=== PATIENT | female | born 2000 | race Caucasian/White ===

== ENCOUNTER 2025-11-09 19:50 | Emergency (ER) | payer OTHER, SELFPAY ==
[2025-11-09 19:52] VITALS: BP 145/79; PULSE 92; RESP 16; TEMP 36.8; O2SAT 100; BMI 24.7
--- NOTE | 2025-11-09 19:55 | ED.GENADULT ---
HPI - General Adult General Chief complaint: Allergic Reaction Stated complaint: having allergic reactio, throat tightness Time Seen by Provider: 11/09/25 21:04 Source: patient Mode of arrival: ambulatory Limitations: no limitations History of Present Illness ED Provider: Dr. Rose Puentes HPI narrative: Patient comes to the emergency room complaining of hives, swelling of the lips, and thrown foreign body sensation. Patient states that all of her reaction started approximately 6 hours from right now. Patient states that her symptoms slowly progress over the next couple of hours, took Benadryl at home, but her hips kept getting swollen. Patient states that to her knowledge she only is allergic to cats, but did not have contact with cats today. Patient states that about a week ago she had a similar allergic reaction but she was cleaning her room and vacuum him so she thinks that there may be an allergy at home that may be causing this. Patient states that she did not eating anything out of the ordinary, she has never had issues with food in the past. Related Data Previous Rx's ?Medication ?Instructions ?Recorded epinephrine 0.3 mg/0.3 mL 0.3 mg (0.3 mL) IM Q10M PRN 11/09/25 injection, auto-injector (EpiPen anaphylaxis #2 ea 2-Keaton) famotidine 40 mg tablet (Pepcid) 40 mg PO DAILY #3 tabs 11/09/25 prednisone 50 mg tablet 50 mg PO DAILY #3 tabs 11/09/25 Allergies Allergy/AdvReac Type Severity Reaction Status Date / Time cat dander (cats) Allergy Hives Verified 11/09/25 19:55 Review of Systems Review of Systems: Constitutional : No Weight loss, No Fever, No Chills, No Night Sweats, No Fatigue, No Malaise ENT/Mouth : No Hearing loss, No Ear Pain, No Nasal Congestion, No Sinus Pain, No Hoarseness, complaining lip swelling upper and lower, No Rhinorrhea, No Swallowing Difficulty Eyes: No Eye Pain, No Swelling, No Redness, mild throat Foreign Body sensation. No Discharge, No Vision Changes Cardiovascular : No Chest Pain, No SOB, No Dyspnea on Exertion, No Orthopnea, No Edema, No Palpitations Respiratory : No Cough, No Sputum, No Wheezing, No Smoke Exposure, No Dyspnea Gastrointestinal : No Nausea, No Vomiting, No Diarrhea, No Constipation, No abdominal Pain, No Hematochezia, No Melena Genitourinary : no irregular bleeding, No Dysuria, No Urinary Frequency, No Hematuria, No Urinary Incontinence, No Urgency, No Flank Pain, No Urinary Flow Changes, No Hesitancy Musculoskeletal : No joint pain, No Myalgias, No Joint Swelling Skin : Hives informs Neuro : No Weakness, No Numbness, No Paresthesias, No Loss of Consciousness, No Dizziness, No Headache Psych : No Anxiety/Panic, No Depression, No SI/HI/AH/VH, No Social Issues, Heme/Lymph: No Bruising, No Bleeding,No Lymphadenopathy Endocrine : No Polyuria, No Polydipsia, No Temperature Int[facility] Social History Social History Advance Directives: No Advance Directives Information Provided: No Do you have a plan to hurt others: No Plan Physical Exam ED Exam Exam: Appearance: Alert. Oriented X3. No acute distress. Eyes: Pupils equal, round and reactive to light. ENT: Pharynx normal. Neck: Normal inspection. Neck supple. No lymph nodes noted. No crepitus CVS: Normal heart rate and rhythm. Pulses normal. Normal S1 and S2 Respiratory: No respiratory distress. Breath sounds normal. No Wheezing. No rales Abdomen: Soft and nontender. No rigidity. No distention. Skin: Skin warm and dry. Normal skin color. Normal skin turgor. Extremities: No lower extremity edema. No Lacerations. No Rash Neuro: Oriented X 3. No motor deficit. No sensory deficit. Moving all extremities. No slurred speech. CN 2 through 12 grossly intact Psych: calm, cooperative, normal affect Vital Signs: Vital Signs - 24 hr 11/09/25 19:52 Temperature 98.3 F Pulse Rate 92 Respiratory Rate 16 Blood Pressure 145/79 H Pulse Oximetry 100 Oxygen Delivery Method Room Air BMI result Body Mass Index 24.7 Course Course Course Narrative: Rapid medical examination performed in triage by Kareen Arana PA-C: Patient is a 25 year old female presenting to the emergency department with upper lip swelling and throat irritation secondary to an unknown irritation. Detailed physical exam and review of systems are deferred to the cardiology clinical nurse specialist. Patient placed back in the waiting room pending room availability. Medications Administered Discontinued Medications Generic Name Dose Route Start Last Admin Trade Name Freq PRN Reason Stop Dose Admin Diphenhydramine HCl 50 mg 11/09/25 21:17 11/09/25 21:29 Diphenhydramine Hcl 50 Mg/Ml Vial IVPUSH 11/09/25 21:18 50 mg ONCE ONE Administration Famotidine 20 mg 11/09/25 20:10 11/09/25 20:17 Famotidine/Pf 20 Mg/2 Ml Vial IVPUSH 11/09/25 20:11 20 mg ONCE ONE Administration Sodium Chloride 1,000 mls @ 999 mls/hr 11/09/25 20:15 11/09/25 21:32 Ns IV 11/09/25 21:15 Infused .Q1H1M JILL Infusion Methylprednisolone Sodium Succinate 60 mg 11/09/25 20:10 11/09/25 20:16 Methylprednisolone Sod Succ 125 Mg/2 Ml Vial IVPUSH 11/09/25 20:11 60 mg ONCE ONE Administration Prednisone 60 mg 11/09/25 21:16 11/09/25 21:29 Prednisone 20 Mg Tablet PO 11/09/25 21:17 60 mg ONCE ONE Administration Medical Decision Making Medical Decision Making [facility] Narrative: By the time that I evaluated the patient, patient's physical exam is pretty much normal. Patient already received IV Solu-Medrol Pepcid and fluids. Patient took 2 tablets of Benadryl prior to arrival. Patient's sleeps of normal however, the patient states that they feels still slightly swollen patient does not have has a anymore, no oropharyngeal swelling, normal tone, uvula midline, no soft palate phlegmon, no wheezing, speaking in full sentences Since patient is still feels that her lips are a bit swollen, I gave her p.o. prednisone and Benadryl. I discussed with the patient's that she needs to follow-up with an clinical field specialist, she will need a skin scratched cyst to determine what she is allergic to, so she knows what to avoid I discussed with the patient that I will send an EpiPen to her pharmacist, and patient understands that this is to be used in a true emergency including the airway. Patient states that after the p.o. prednisone and IV Benadryl, she feels completely back to baseline. States that her lips are back to normal. Denies any foreign body sensation in her throat. Differential Diagnosis Differential Diagnoses: The differential diagnosis associated with the presentation includes (Allergic reaction, hypersensitivity reaction, hereditary angioedema) Admission/Observation Consideration of admission/observation: Escalation of care including admission/observation considered (Given patient's initial presentation and symptoms, observation was considered) Critical Care Time Critical Care Time Critical Care Time: Yes Total Critical Care Time: 45 Attestation: I have personally provided critical care time. Time includes review of lab data, radiology results, discussion with consultants, and monitoring for potential decompensation. Intervention performed as documented. Discharge Plan Discharge Clinical Impression: Allergic reaction Patient Disposition: Home, Self-Care Instructions: General Allergic Reaction (ED) Additional Instructions: When you lease picker your EpiPen at the pharmacy, please ask the pharmacist to show you how to use it. Also, please watch a YouTube video how to use it. Do not wait until an emergency occurs to try to figure out how to assemble your EpiPen. Please follow-up with your primary care physician tomorrow. If you have any worsening or new symptoms, please return to the emergency room or call 911 Prescriptions: New prednisone 50 mg tablet 50 mg PO DAILY Qty: 3 0RF famotidine [Pepcid] 40 mg tablet 40 mg PO DAILY Qty: 3 0RF epinephrine [EpiPen 2-Keaton] 0.3 mg/0.3 mL auto-injector 0.3 mg IM Q10M PRN (Reason: anaphylaxis) Qty: 2 0RF Rx Instructions: for 2 doses Print Language: Algerian
--- OUTSIDE RECORDS SUMMARY | 2025-11-09 21:03 | XMS_ITS | Clinical Summary ---
Author Organization [facility] Address [address] [place] [address] Care Team Providers Care Tumbling And Rolling Supervisor Name Role Phone Pcp, No Primary Care Provider [phone] Allergies No known active allergies Medications Vyvanse 20 mg capsule TAKE 1 CAPSULE BY MOUTH DAILY IN THE MORNING 01/10/2024 Active guanFACINE (TENEX) 1 MG tablet 01/25/2024 Active desvenlafaxine (PRISTIQ) 50 MG 24 hr tablet 01/22/2024 Active polyethylene glycol (GLYCOLAX) 17 gram packet Take 17 g by mouth 03/11/2016 Active desvenlafaxine succinate (PRISTIQ) 25 mg Tb24 11/21/2024 Active Active Problems Problem Noted Date Diagnosed Date Inflammatory bowel disease 01/27/2024 Overview (01/27/2024): constipation predominant Encounters Date Type Department Care Team Description 08/30/2025 11:00 AM EDT Office Visit [facility] [id number] [address] [place] [address] Ebonie Davison NP Need for vaccination (Primary Dx) from Last 3 Months Immunizations Immunization Administration Dates Next Due Flublok Trivalent Prefilled Syringe (9+ Years) 1 Fluzone Trivalent Prefilled Syringe (18+ months) 11/25/2024 PPD Test 05/26/2023 Social History Tobacco Use Types Packs/Day Years Used Date Smoking Tobacco: Never Passive Smoke Exposure: Never Smokeless Tobacco: Never Tobacco Cessation:Counseling Given: Not Answered Comments No Sex and Gender Information Value Date Recorded Sex Assigned at Not on file Legal Sex Female 4:13 PM EDT Gender Identity Not on file Sexual Orientation Not on file Last Filed Vital Signs Vital Sign Reading Time Taken Comments Blood Pressure 122/60 11/25/2024 6:13 PM EST Pulse 79 11/25/2024 6:13 PM EST Temperature 36.7 C (98 F) 11/25/2024 6:13 PM EST Respiratory Rate 19 11/25/2024 6:13 PM EST Oxygen Saturation 100% 11/25/2024 6:13 PM EST Inhaled Oxygen Concentration - - Weight - - Height 175.3 cm (5' 9 ) 01/27/2024 2:16 PM EDT Body Mass Index - - Plan of Treatment Health Maintenance Due Date Last Done Comments Depression: Screening Annually using PHQ-2/9 in Adults 18 yrs or above (or HM Modifier)([facility]) 2019 Hepatitis C Virus Infection in Adolescents and Adults: Screening (or Modifier) ([facility]) 2019 SDOH Screening Reminder: Annually for all adults ([facility]) 2019 DTaP/Tdap/Td Vaccines ([facility]) (1 - Tdap) 2020 Cervical Cancer Screenin-65 yrs of age (or Modifier) 2022 Cervical Cancer Screening: Pap every 3 yrs pts age 21-65 2022 Cervical Cancer: Pap Screening with Modifier timing ([facility]) 2022 Cervical Cancer: hrHPV alone or with cotesting Pap for Pts 30-65yrs screening every 5yrs ([facility]) 2022 COVID-19 Vaccine Screening: Initial Series and Booster Status ([facility]) (2024- season) 2025 Zoster/Shingles Vaccine Series Screening: Adults aged 18+ yrs (or HM Modifiers)([facility]) (1 of 2) 2051 Flu Vaccination: Yearly for ages 18mos through 64 years (or Modifier)([facility]) Completed 08/30/2025, 11/25/2024 Pneumococcal Vaccination Screening: Pts 0-19 & 19-49 yrs of age ([facility]) Aged Out No longer eligible b ased on patient's age to complete this topic Medical Devices Not on file Procedures Procedure Name Priority Date/Time Associated Diagnosis Comments FLUBLOK TRIVALENT PFS IM; WITHOUT PRESERVATIVE (9+ YRS) Routine 08/30/2025 10:57 AM EDT Need for vaccination from Last 3 Months Insurance Care Teams Tumbling And Rolling Supervisor Relationship Specialty Start Date End Date Pcp, No PCP - General Family Medicine 05/26/23
--- OUTSIDE RECORDS SUMMARY | 2025-11-09 21:03 | XMS_ITS | Clinical Summary ---
Author Organization [facility] Address [address] [place] [address] Care Team Providers Care Mental Health Unit Lead Psychologist Name Role Phone Unavailable Primary Care Provider Unavailabl e Allergies No known active allergies Medications * This document contains information received from the source organization and may not represent a complete record from that organization. polyethylene glycol (MIRALAX) 17 gram packetIndication s:Other constipation Take 1 packet (17 g total) by mouth daily. 30 packet 6 6 Active Additional Information Patient taking differently: 34 gOral Once Daily, Reported on 04/04/2016 loratadine (CLARITIN) 10 mg tablet Take 10 mg by mouth daily. Active guanFACINE (TENEX) 2 MG tablet Take 2 mg by mouth once daily. Active escitalopram oxalate (LEXAPRO) 20 MG tablet Take 20 mg by mouth once daily. Active melatonin 5 mg Chew Chew 5 mg. OTC gummy form-patient takes 1-2 gummies Active Active Problems Problem Noted Date Diagnosed Date Major depressive disorder, recurrent episode, mo derate 10/15/2018 OCD (obsessive compulsive disorder) 10/15/2018 Anxiety disorder 10/15/2018 Immunizations Name Administration Dates Next Due Influenza, split virus, trivalent, PF 11/25/2024 Family History Medical History Relation Name Comments Depression Brother 1 16 yo Relation Name Status Comments Brother 1 16 yo Alive Brother 2 13 yo Alive Social History Tobacco Use Types Packs/Day Years Used Date Smoking Tobacco: Never Smokeless Tobacco: Never Comments:had occasional vape with nicotine in past, but has stopped use Alcohol Use Standard Drinks/Week Comments Yes 0 (1 standard drink = 0.6 oz pur e alcohol) 2-3 drinks with friends Comments No Sex and Gender Information Value Date Recorded Sex Assigned at Not on file Legal Sex Female 1:26 AM EST Gender Identity Not on file Sexual Orientation Not on file Last Filed Vital Signs Vital Sign Reading Time Taken Comments Blood Pressure 114/52 10/15/2018 12:31 PM EST Pulse 72 10/15/2018 12:31 PM EST Temperature 36.2 C (97.2 F) 10/15/2018 12:31 PM EST Respiratory Rate 18 10/15/2018 12:31 PM EST Oxygen Saturation 98% 10/15/2018 12:31 PM EST Inhaled Oxygen Concentration - - Weight 79.2 kg (174 lb 9.6 oz) 02/15/2023 3:15 P M EDT Height 176.5 cm (5' 9.5 ) 02/15/2023 3:15 PM EDT Body Mass Index 25.41 02/15/2023 3:15 PM EDT Plan of Treatment Health Maintenance Due Date Last Done Comments CHLAMYDIA SCREENING 2001 HEPATITIS C SCREENING 2018 Cervical Cancer Screening 2022 Pap Smear 2022 INFLUENZA VACCINE (#1) 2025 , 07/30/2021, 08/12/2020, Additional history exists COVID-19 IMMUNIZATION (3 - season) 2025 04/10/2021, 03/19/2021 DTAP/TDAP/TD VACCINES (7 - Td or Tdap) 07/25/2032 07/25/2022, 10/31/2012, 05/24/2006, Additional history exists ZOSTER VACCINE (1 of 2) 2051 06/04/2007, 05/21 RSV IMMUNIZATION (1 - 1-dose 75+ series) 2076 HEPATITIS B VACCINES Completed 02/18/2002, 2001, 2001 HIB VACCINES Completed 08/22/2002, 03/2001, 2001 PNEUMOCOCCAL VACCINE Aged Out 10/19/2002, 2001, 2001 No longer eligible based on patient's age to complete this topic IPV VACCINES Completed 05/24/2006, 03/2001, 2001 MMR VACCINES Completed 05/24/2006, 08/22/2002 VARICELLA VACCINES Completed 06/04/2007, 05/21/2002 HEPATITIS A VACCINES Completed 10/31/2012, 09/07/20 11 HPV VACCINE Completed 03/28/2016, 02/16/2015 MENINGOCOCCAL ACYW VACCINE Completed 05/24, 01/02/2014, 10/31/2012 MENINGOCOCCAL B VACCINE Aged Out No l onger eligible based on patient's age to complete this topic ROTAVIRUS VACCINES Aged Out No longer eligible based on patient's age to complete this topic Insurance [employer] Advance Directives For more information, please contact: [phone] * Full Code (Latest Code Status on File) Date Activated Date Inactivated Comments 10/15/2018 12:52 PM
--- OUTSIDE RECORDS SUMMARY | 2025-11-09 21:03 | XMS_ITS ---
Author Name [facility] Organization Unknown Results Test Name/Text Value Interpretation Date Range Source SOURCE SEE TEXT 08/22/2025 [facility] MOBILUNCUS CURTISII Not Detected 07/31/2025 [facility] ATOPOBIUM VAGINAE Detected 07/31/2025 [facility] LACTOBACILLUS SPP Decreased 07/31/2025 [facility] GARDNERELLA VAGINALIS Detected 07/31/2025 [facility] LACTOBACILLUS INERS Detected 07/31/2025 [facility] SPECIMEN SEE BELOW 07/31/2025 [facility] MOBILUNCUS MULIERIS Not Detected 07/31/2025 [facility] MEGASPHAERA SPP Not Detected 07/31/2025 [facility] PREVOTELLA BIVIA Detected 07/31/2025 [facility] BVAB2 Not Detected 07/31/2025 [facility] BACTERIAL VAGINOSIS RESULT Positive Abnormal 07/31/2025 [facility] History of Medication Use Medication Directions Dispensed Refills Start Date End Date Stat omeprazole 20 mg capsule,delayed release Take 1 capsule every day by oral route as directed for 30 days. 07/28/2025 active desvenlafaxine succinate (PRISTIQ) 25 mg Tb24 11/21/2024 active guanFACINE (TENEX) 1 MG tablet 01/25/2024 active desvenlafaxine (PRISTIQ) 50 MG 24 hr tablet 01/22/2024 active Vyvanse 20 mg capsule TAKE 1 CAPSULE BY MOUTH DAILY IN THE MORNING 01/10/2024 active polyethylene glycol (GLYCOLAX) 17 gram packet Take 17 g by mouth 03/11/2016 active desvenlafaxine succinate ER 25 mg tablet,extended release 24 hr TAKE 1 TAB BY MOUTH DAILY WITH 50MG DAILY completed omeprazole 20 mg capsule,delayed release active desvenlafaxine succinate ER 50 mg tablet,extended release 24 hr TAKE 1 TABLET BY MOUTH EVERY DAY active guanfacine 1 mg tablet TAKE 1 TABLET BY MOUTH ONCE A DAY (IN THE MORNING) active intrauterine device (IUD) Take by intrauterine route. active lisdexamfetamine 20 mg capsule TAKE 1 CAPSULE EVERY MORNING active Problems Problem Status Onset Date Problem Type Date of Resolution Source Inflammatory bowel disease active 2024-01-27 [facility] for vaccination active EncounterDiagnosisAct [facility] MCRI Attention deficit hyperactivity disorder active 2025-07-28 ProblemAct [facility] M Body mass index 20-24 - normal active 2025-07-28 ProblemAct [facility] M History of eating disorder active 2025-07-28 ProblemAct [facility] M Immunizations Vaccine Date Source Lot Number Status Flublok Trivalent Prefilled Syringe (9+ Years) 08/30/2025 [facility] [id number] completed Fluzone Trivalent Prefilled Syringe (18+ months) 11/25/2024 [facility] [id number] completed PPD Test 05/26/2023 [facility] [id number] completed Tdap 07/25/2022 [facility] [id number] completed Influenza, split virus, quadrivalent, PF 07/30/20[id number] completed COVID-19, mRNA, LNP-S, PF, 3 0 mcg/0.3 mL dose 04/10/2021 [facility] [id number] completed COVID-19, mRNA, LNP-S, PF, 3 0 mcg/0.3 mL dose 03/19/2021 [facility] completed Influenza, split virus, quadrivalent, PF 09/06/2019 [facility] RTERAM completed Influenza, split virus, quadrivalent, PF 08/30/2017 [facility] [id number] completed meningococcal MCV4P 05/24/2017 [facility] [id number] com pleted Influenza, split virus, quadrivalent, PF 08/09/2016 [facility] RTERAM [id number] completed HPV9 03/28/2016 [facility] [id number] completed Influenza, live, quadrivalen t, intranasal 08/27/2015 [facility] [id number] completed HPV, quadrivalent 02/16/2015 [facility] [id number] compl eted meningococcal MCV4P 01/02/2014 [facility] com pleted Influenza, split virus, quadrivalent, PF 09/10/2013 [facility] [id number] completed Hep A, ped/adol, 2 dose 10/31/2012 [facility] [id number] completed meningococcal MCV4P 10/31/2012 [facility] [id number] com pleted Tdap 10/31/2012 [facility] [id number] completed Influenza, live, trivalent, intranasal, PF 09/04/2012 [facility] completed Hep A, ped/adol, 2 dose 09/07/2011 [facility] [id number] completed Influenza, live, trivalent, intranasal, PF 09/07/2011 [facility] [id number] completed Influenza, live, trivalent, intranasal, PF 08/26/2010 [facility] [id number] completed Novel [id number], all formulations 12/14/2009 [facility] completed Novel [id number]-[id number], all formulations 09/25/2009 [facility] completed Influenza, live, trivalent, intranasal, PF 08/03/2009 [facility] [id number] completed varicella 06/04/2007 [facility] completed DTaP 05/24/2006 [facility] completed IPV 05/24/2006 [facility] completed MMR 05/24/2006 [facility] completed DTaP 10/19/2002 [facility] completed pneumococcal conjugate PCV 7 10/19/2002 [facility] completed influenza, unspecified formulation 09/24/2002 [facility] completed Hib (PRP-OMP) 08/22/2002 [facility] completed influenza, unspecified formulation 08/22/2002 [facility] completed MMR 08/22/2002 [facility] completed varicella 05/21/2002 [facility] completed Hep B, adolescent or pediatric 02/18/2002 [facility] completed DTaP 2001 [facility] completed Hib (PRP-OMP) 2001 [facility] completed IPV 2001 [facility] completed pneumococcal conjugate PCV 7 2001 [facility] completed DTaP 2001 [facility] completed Hib (PRP-OMP) 2001 [facility] completed IPV 2001 [facility] completed pneumococcal conjugate PCV 7 2001 [facility] completed Hep B, adolescent or pediatric 2001 [facility] completed Hep B, adolescent or pediatric 2001 [facility] 520 4 A2 completed Encounters Encounter Type Encounter Reason Primary Diagnosis Location Date Ambulatory Encounter for screening for malignant neoplasm of cervix Encounter for screening for malignant neoplasm of cervix [facility] 10/15/2025 Ambulatory [facility] 09/09/2025 Ambulatory Vaccines [facility] [place] Amb[facility] 07/28/2025 Ambulatory [facility] 07/28/2025 Ambulatory [facility] 07/28/2025 Ambulatory [facility] 07/28/2025 Ambulatory [facility] 07/25/2025 Care Team Organization Name Specialty Phone Email Start Date End Da te Care [facility] Primary [facility] 1 12/16/2024 Care [facility] 1 12/16/2024 [facility] 07/25/2025 [facility] Primary Care [facility] Primary Care 03/26/2025 06/19/2025 [facility] Clinic 07/27/2019 07/27/2019
--- OUTSIDE RECORDS SUMMARY | 2025-11-09 21:03 | XMS_ITS | Clinical Summary ---
Author Organization [facility] Address [address] [place] [address] Phone Care Team Providers Care Primary Montessori Teacher Name Role Phone Elodia Palacio MD Primary Care Provider [phone] Elodia Palacio MD Unavailable [phone] Elodia Palacio MD Unavailable [phone] Social History Tobacco Use Types Packs/Day Years Used Date Smoking Tobacco: Never Assessed Comments Unknown Sex and Gender Information Value Date Recorded Sex Assigned at Not on file Legal Sex Female 12:11 AM EDT Gender Identity Not on file Sexual Orientation Not on file Plan of Treatment Not on file Care Teams Primary Montessori Teacher Relationship Specialty Start Date End Date Elodia Palacio MD [address] [place] [id number] PCP - General 06/08/16 Elodia Palacio MD [address] [place] [id number] PCP - Clinical PCP 06/08/16 Elodia Palacio MD [address] [place] [id number] PCP - Insurance PCP 06/08/16
[2025-11-09 22:19] VITALS: BP 119/77; PULSE 82; RESP 16; TEMP 36.8; O2SAT 98
== END 2025-11-09 22:20 | disposition home or self-care (01) ==
PROVIDERS: Emergency Provider Emergency Medicine
DX: T78.40XA Allergy, unspecified, initial encounter (principal); X58.XXXA Exposure to other specified factors, initial encounter
CPT/HCPCS: 96361; 96374; 96375; 99284; J1200; J1308; J2919